=== PATIENT | male | born 1940 | race Caucasian/White ===

== ENCOUNTER 2017-09-06 06:36 | Inpatient (IN) | payer MEDICARE, OTHER ==
[2017-08-25 13:01] LABS: URINE BILIRUBIN NEGATIVE (Negative); URINE BLOOD NEGATIVE (Negative); URINE CLARITY CLEAR; URINE COLOR YELLOW; URINE GLUCOSE-RANDOM 3+ (Negative); URINE KETONES NEGATIVE (Negative); URINE LEUKOCYTES-REFLEX NEGATIVE (Negative); URINE NITRITE-REFLEX NEGATIVE (Negative); URINE PROTEIN NEGATIVE (Negative); URINE SPECIFIC GRAVITY >= 1.030 (1.005-1.030); URINE UROBILINOGEN 0.2 E.U./dl (0.2-1.0)
[2017-08-25 13:02] LABS: ABSOLUTE BASOPHILS 0.1 thou/uL (0.0-0.2); ABSOLUTE EOSINOPHILS 0.3 thou/uL (0.0-0.7); ABSOLUTE LYMPHOCYTES 1.1 thou/uL (0.8-5.3); ABSOLUTE MONOCYTES 0.5 thou/uL (0.0-1.2); ABSOLUTE NEUTROPHILS 4.8 thou/uL (1.6-8.1); BASOPHILS 1.3 %; EOSINOPHILS 3.7 %; HEMATOCRIT 41.7 % (42.0-52.0); HEMOGLOBIN 14.3 gm/dL (14.0-18.0); LYMPHOCYTES 16.1 %; MCH 33.5 pg (26.0-34.0); MCHC 34.2 g/dL (28.0-37.0); MCV 97.8 fL (80.0-100.0); NUCLEATED RBCS 0 /100WBC; PLATELET COUNT* 221 thou/uL (150-400); POLYS 70.9 %; RBC 4.26 mil/uL (4.50-6.00); RDW-CV 13.5 % (10.5-14.5); WBC 6.7 thou/uL (4.0-11.0)
[2017-08-25 13:09] LABS: INR 1.1; PROTIME 10.4 Seconds (9.20-11.50)
[2017-08-25 13:23] LABS: ALBUMIN 3.9 g/dL (3.4-5.0); CALCIUM 9.2 mg/dL (8.5-10.1); CREATININE 1.3 mg/dL (0.6-1.3); POTASSIUM 4.1 mmol/L (3.5-5.1); TOTAL BILIRUBIN 0.7 mg/dL (<0.1-1.0); TOTAL PROTEIN 7.2 g/dL (6.4-8.2)
--- NOTE | 2017-08-25 16:06 | EKG ---
[place] [address] ELECTROCARDIOGRAM REPORT Name: MITCH SNIDER Room: [facility] IN [facility]#: [id number] Admission: Attend Phys: Sury Zuluaga Discharge: Date of : 42 Report #: [id number] THIS REPORT FOR: //name// [facility] Test Date: 2017-08-25 Test Time: 13:07:13 Pat Name: MITCH SNIDER Department: Room: Gender: M Sign Carpenter: : 1940 Requested By: Cr Conner Order Number: [id number] Reading MD: Les Flores Measurements Intervals Cisco Rate: 75 P: 64 MA: 180 QRS: 13 QRSD: 88 T: 66 QT: 362 QTc: 405 Interpretive Statements Sinus rhythm Minor nonspecific st-t changes Electronically Signed On 08-25-2017 16:06:17 CDT by Les Flores [email or web address] <ELECTRONICALLY SIGNED> By: Les Flores MD, [facility] 08/25/17 1606 1307 1307 Les Flores MD, FACC /EPI
[~2017-09-06] VITALS: Ht 185.4 cm; Wt 86.2 kg
[~2017-09-06 06:36] MED LIST: ASPIR 8181 MG PO; ASPIRIN325 PO; GLUCOTROL5 MG PO; METFORMIN HCL500 MG PO; PERCOCET 5-3251 EACH PO; SIMVASTATIN40 MG PO; TOPROL XL25 MG PO; XARELTO10 MG PO
[2017-09-06 09:37] VITALS: BP 141/91
[2017-09-06 14:50] VITALS: BP 147/71
--- NOTE | 2017-09-06 16:21 | NUR ---
PATIENT ADMITTED FROM SURGERY TO ROOM 312. PATIENT DROWSY, ORIENTED X 4. AT BEDSIDE. NO COMPLAINTS OF PAIN. ACCUCHECK. DRESSING TO RIGHT HIP D/I, HEMOVAC IN PLACE WITH MINIMAL DRAINAGE NOTED. CAPNO IN PLACE WITH 3L NC, PATIENT EDUCATED ON SLEEP APNEA. KNEE HIGHS AND FOOT PUMPS IN PLACE. ORIENTED TO CALL LIGHT. CALL LIGHT WITHIN REACH, WILL CONTINUE TO MONITOR.
[2017-09-06 20:30] VITALS: BP 116/69
[2017-09-07 00:22] VITALS: BP 108/61
[2017-09-07 05:24] LABS: HEMATOCRIT 33.8 % (42.0-52.0); HEMOGLOBIN 11.7 gm/dL (14.0-18.0)
[2017-09-07 05:30] LABS: CALCIUM 7.9 mg/dL (8.5-10.1); CREATININE 1.1 mg/dL (0.6-1.3); POTASSIUM 4.3 mmol/L (3.5-5.1)
--- NOTE | 2017-09-07 05:37 | NUR ---
PATIENT ALERT AND ORIENTED. DROWSY AT THE BEGINNING OF MY SHIFT. VITALS STABLE. ON 3L OF OXYGEN, CAPNO IN PLACE. RIGHT HIP DRESSING C/D/I. HEMAVAC IN PLACE. VOIDING PER URINAL. BED ALARM IN USE. FLUIDS INFUSING PER ORDER. HOURLY ROUNDS. BED ALARM IN USE. NURSING WILL CONTINUE TO MONITOR.
[2017-09-07 08:27] VITALS: BP 124/62
[2017-09-07] MEDS ORDERED: XARELTO10 MG PO (09:34)
[2017-09-07] MEDS ORDERED: PERCOCET PO ×2 (09:37→10:46)
[2017-09-07 09:51] VITALS: BP 124/62
[2017-09-07] MEDS ORDERED: HYDROCODON-ACE1 EAC7 PO (10:46)
--- NOTE | 2017-09-07 12:19 | NUR ---
CALLED IN PRESCRIPTION FOR XARELTO WRITTEN TO PT[facility]S [facility] [phone]. COPAY IS $167. INFORMED PT. HE SAID HE CANNOT AFFORD THAT AND LAST TIME HE TOOK A FULL STRENGTH ASPIRIN DAILY INSTEAD. CM INFORMED AMINA ALICIA.
[2017-09-07] MEDS ORDERED: ASPIRIN325 PO (12:22)
[2017-09-07] MEDS ORDERED: HYDROCODONE-AP1 EAC6 PO (13:56)
[2017-09-07 14:22] VITALS: BP 124/62
--- NOTE | 2017-09-07 14:25 | NUR ---
SW met with pt and pt to complete initial assessment, introduce self and SW role. Pt alert, oriented, pleasant. Pt lives at home with his . Pt has rolling walker and a cane. Pt said he is going to borrow a toilet riser and a tub bench from his neighbor. Pt preference for OP therapy services to follow. SW discussed doctor's recommendation for HH services and pt thought about the options presented and prefered to have SW arrange for OP as pt plans to not be homebound and says he wants to get better and he is aware OP therapy has more options. Pt OP of choice is [facility] in [place] off of [address] Pt lives really close to this office and his can provide rides. [phone].
--- NOTE | 2017-09-07 14:43 | NUR ---
PATIENT DISCHARGING WITH OUTPATIENT THERAPY. PATIENT REFUSED HOME HEALTH. PAIN CONTROLLED WITH NORCO- SCRIPT GIVEN. PATIENT UNABLE TO AFFORD XARELTO. PER DR DORAN PATIENT MAY DC HOME ON ASPIRIN 325MG DAILY FOR [address] OF XARELTO[address] ICE PACKS PROVIDED. PATIENT VERBALIZES UNDERSTANDING OF DC INSTRUCTIONS.
--- NOTE | 2017-09-08 12:44 | S ---
[address] [address] SURGICAL PATH RPT PROCEDURE Name: LENNY GARCIA Room: [address] IN [facility].#: [id number] Admission: 09/06/17 Date of : 42 Discharge: 09/07/17 Report #: [id number] Path Case #: [id number] PATHOLOGY REPORT COLLECTION DATE: 09/06/2017 RECEIVED DATE: 09/06/2017 SUBMITTING PHYS: Dr. Cr Conner II OTHER PHYS: Dr. 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 - Benign femoral head tissues with severe microcystic degenerative changes. (JUDITH:db; 09/08/2017) PATHOLOGIST: Efra Lindsey M.D. REPORT ELECTRONICALLY SIGNED BY: Efra Lindsey M.D. DATE/TIME: 09/08/2017 12:43 * * * * * * * * * * * * GROSS PATHOLOGY: Received in formalin labeled "Lenny Garcia and right femoral head," is a femoral head measuring 5.0 x 5.0 x 4.6 cm in greatest dimensions. The articular surface is irregular with extensive eburnation. Sectioning of the bone reveals a yellow homogeneous cut surfaces with thinning of the overlying articular cartilage and a 2.9 x 1.5 x 1.3 cm defect filled with friable hemorrhagic material that involves the resection margin and is 1.4 cm from the opposite articular cartilage. Peripheral osteophytes are present. Also within the container are multiple red hemorrhagic and hopper-white rubbery soft tissues the aggregate measures 8.0 x 7.0 x 2.5 cm. A photograph is taken. Trekking Guide sections are submitted as follows: A1 femoral head following decalcification A2 additional fragments (SWS; 09/06/2017) [place] [address] SURGICAL PATH RPT PROCEDURE Name: FILIBERTOANGELICABryLENNY E Room: [address] IN [facility]#: [id number] Admission: 09/06/17 Date of : 42 Discharge: 09/07/17 Report #: [id number] Path Case #: [id number] CLINICAL HISTORY: Right hip DJD INITIAL CPT CODE(S): A; 86270, 15938 Professional services performed by [employer] at [facility], [address] [place] [address] [place] [address]. Technical services performed by [employer] at [address] [place] [address], [facility] [address] [address]. [facility] [address] [address] PHONE: [phone] DIRECTOR: Kulwinder W. Mary, M.D. * * * END OF REPORT * * *
--- NOTE | 2017-09-13 08:30 | OP ---
[facility] [address] [place] [address] OPERATIVE REPORT Name: FILIBERTOANGELICABryMITCH Vern Room: [address] IN [facility]#: [id number] Admission: 09/06/17 Attend Phys: Sury Zuluaga Discharge: 09/07/17 Date of : 42 Report #: [id number] THIS REPORT FOR: //name// CC: Genevieve Esposito DATE OF SERVICE: 09/06/2017 PREOPERATIVE DIAGNOSIS: Right hip osteoarthritis. POSTOPERATIVE DIAGNOSIS: Right hip osteoarthritis. PROCEDURE: Right total hip arthroplasty. SURGEON: Cr Conner II, DO SHERIFF'S DETECTIVE: TURNER Tsai ANESTHESIA: Per operative record. ESTIMATED BLOOD LOSS: 200 mL. ANTIBIOTICS: Preoperative record. DRAINS: Hemovac. COMPLICATIONS: None. DISPOSITION: Stable to recovery room. IMPLANTS: Listed in chart and operative record. BRIEF HISTORY: The patient was seen in the preoperative area. Preop H and P was performed. Site was marked and questions were answered. Risks and benefits were discussed with the patient in detail and would like to proceed. OPERATIVE PROCEDURE: The patient was taken to the operative suite and placed supine on the operating table and given appropriate anesthesia. The patient's right hip was sterilely prepped and draped in the supine position on the Wellington table. Surgery began by an anterior incision on the right hip and carried down to the subcutaneous tissues. A small courtney was made in the tensor fascia. It was then split in line with its fibers and retracted to appropriate length. The H capsulotomy was then performed down to the head and neck. This was freed up from the soft tissue attachments and the head and neck cutting alignment guide was checked with C-arm for appropriate alignment. [place] [address] OPERATIVE REPORT Name: AGATHAMITCH E Room: [address]#: [id number] Admission: 09/06/17 Attend Phys: Sury Zuluaga Discharge: 09/07/17 Date of : 42 Report #: [id number] The head and neck was removed utilizing a corkscrew. Attention was then turned to the acetabulum. It was then reamed in a sequential fashion after appropriately sized with good bleeding bone. Excess labrum was removed and the final implant was malleted into position. One screw was utilized to secure this into the cup and the metal liner was then placed. Attention was then turned back to the femur. Excess soft tissue was removed from around the femur. It was then freed up and retracted out into the operative space. It was then broached in a sequential fashion up to the appropriate size. This showed an excellent fit and fill. A standard offset neck was then trialled and reduced and shown to have excellent flexion and extension of the hip without evidence of dislocation. The final stem was then malleted into position. Final head was then malleted into position and was once again reduced and shown to have excellent leg length and excellent flexion and extension of the hip. Final irrigation was performed of the wound. The Hemovac drain was applied. Pain cocktail was injected and PRP gel was sprayed throughout the internal aspects of the hip. The H capsulotomy was then closed with #1 Vicryl in [id number] fashion. The tensor fascia was closed with the #1 Vicryl in a running fashion. Skin was closed with a Vicryl and Monocryl stitch. Dermabond and sterile dressing was applied. The patient was transported to the recovery room in stable fashion. Counts were correct throughout the procedure. <ELECTRONICALLY SIGNED> By: Cr Conner II, DO 09/13/17 0830 [id number] Conner II, DO /nt
== END 2017-09-07 15:22 | disposition home or self-care (01) | DRG 470 ==
LOC: M.PRE 06:36 → M.3W 08:37 → M.TBA 08:37 → M.PRE 10:49 → M.3W 14:37
PROVIDERS: Internal Medicine; Orthopaedic Surgery; ADMIT Internal Medicine
PROC: 0SR901Z Replacement of Right Hip Joint with Metal Synthetic Substitute, Open Approach (ICD-10-PCS; principal; 2017-09-06)
DX: M16.11 Unilateral primary osteoarthritis, right hip (principal); E11.9 Type 2 diabetes mellitus without complications; I25.10 Atherosclerotic heart disease of native coronary artery without angina pectoris; E78.5 Hyperlipidemia, unspecified; I10 Essential (primary) hypertension; Z83.3 Family history of diabetes mellitus; Z82.49 Family history of ischemic heart disease and other diseases of the circulatory system; Z95.5 Presence of coronary angioplasty implant and graft; Z79.82 Long term (current) use of aspirin; Z79.899 Other long term (current) drug therapy; Z79.84 Long term (current) use of oral hypoglycemic drugs